=== PATIENT | female | born 1965 | race Caucasian/White ===

== ENCOUNTER → 2016-12-31 | Day surgery (SDC) | payer MEDICARE ==
[~2016-12-31] MED LIST: BENTYL10 MG PO; BIOTIN1 MG PO; CRESTOR5 MG PO; FIBERCON625 MG PO; FLAGYL500 MG PO; IBUPROFEN800 MG PO; IMODIUM CAP 2 MG2 MG PO; LEVAQUIN500 MG PO; PHENERGAN 25 MG25 M1 PO; PROTONIX40 MG PO; VITAMIN D350000 UNIT PO; ZOFRAN4 MG PO
== END | disposition home or self-care (01) ==
LOC: OR 07:00
PROVIDERS: Internal Medicine Gastroenterology
PROC: 0DBG8ZX Excision of Left Large Intestine, Via Natural or Artificial Opening Endoscopic, Diagnostic (ICD-10-PCS; 2016-12-31)
PROC: 0DBL8ZX Excision of Transverse Colon, Via Natural or Artificial Opening Endoscopic, Diagnostic (ICD-10-PCS; 2016-12-31)
PROC: 0DBB8ZX Excision of Ileum, Via Natural or Artificial Opening Endoscopic, Diagnostic (ICD-10-PCS; principal; 2016-12-31 10:45)
DX: K52.9 Noninfective gastroenteritis and colitis, unspecified (principal); K64.1 Second degree hemorrhoids; M06.9 Rheumatoid arthritis, unspecified; Z87.19 Personal history of other diseases of the digestive system; Z88.6 Allergy status to analgesic agent; Z88.0 Allergy status to penicillin; Z79.899 Other long term (current) drug therapy; Z82.49 Family history of ischemic heart disease and other diseases of the circulatory system; Z83.79 Family history of other diseases of the digestive system; Z83.3 Family history of diabetes mellitus
CPT/HCPCS: J2250; J7030

== ENCOUNTER 2021-04-10 01:02 | Emergency (ER) | payer MEDICARE ==
[~2021-04-10 01:02] MED LIST changes: +CRESTOR10 MG PO; +DAILY VALUE1 EACH PO
== END 2021-04-10 03:30 | disposition home or self-care (01) ==
LOC: ER1 01:02
DX: G43.909 Migraine, unspecified, not intractable, without status migrainosus (principal); F17.210 Nicotine dependence, cigarettes, uncomplicated; Z88.0 Allergy status to penicillin; Z88.5 Allergy status to narcotic agent
CPT/HCPCS: 96372; 99283; J1100; J1885

== ENCOUNTER → 2021-09-12 | Day surgery (SDC) | payer OTHER ==
[~2021-09-12] MED LIST changes: +APRISO0.375 GM PO; +ARTHRITIS PAIN100 GM TOP; +BIOTIN2500 MCG PO; +BLACK COHOSH540 MG PO; +DICYCLOMINE HCL10 MG PO; +FEXOFENADINE H180 MG PO; +IBU800 MG PO; +MELOXICAM15 MG PO; +OMEPRAZOLE20 M1 PO; +ONDANSETRON HCL8 MG PO; +VITAMIN D21250 MCG PO
== END | disposition home or self-care (01) ==
LOC: OR 05:58
DX: K50.00 Crohn's disease of small intestine without complications (principal); K63.89 Other specified diseases of intestine; K59.00 Constipation, unspecified; Z88.0 Allergy status to penicillin; Z88.5 Allergy status to narcotic agent; F17.210 Nicotine dependence, cigarettes, uncomplicated; E66.3 Overweight; Z68.27 Body mass index [BMI] 27.0-27.9, adult; Z20.822 Contact with and (suspected) exposure to COVID-19
CPT/HCPCS: J2704; J7040; J7120